=== PATIENT | male | born 1970 | race Caucasian/White ===

== ENCOUNTER 2022-06-18 11:20 | Emergency (ER) | payer BC ==
[~2022-06-18] VITALS: Ht 175.3 cm; Wt 86.2 kg
--- NOTE | 2022-06-18 11:35 | NUR ---
[id number] FROM HOME C/O L SIDED FLANK PAIN ONSET 2 HOURS AGO. PAIN IS 10/10 ON PAIN SCALE. ATTACHED TO MONITOR, VITALS ARE WITHIN NORMAL LIMITS. AWAITING MD RENEE.
[2022-06-18] MEDS ORDERED: KETOROLAC TROMETHAMINE 15 MG/ML VIAL ONE ×2 (11:43→14:30)
[2022-06-18] MEDS ORDERED: ONDANSETRON HCL/PF 4 MG/2 ML VIAL ONE (11:43)
[2022-06-18] MEDS ORDERED: MORPHINE SULFATE INJ 4 MG/ML DISP.SYRIN ONE (11:44)
[2022-06-18] MEDS ORDERED: MORPHINE SULFATE INJ 2 MG/ML DISP.SYRIN IV ONE (12:00)
[2022-06-18] MEDS ORDERED: KETOROLAC TROMETHAMINE INJ 30 MG/ML VIAL IV ONE ×2 (12:00→14:30)
[2022-06-18] MEDS ORDERED: ONDANSETRON HCL/PF 4 MG/2 ML VIAL IVP ONE (12:00)
[2022-06-18] MEDS ORDERED: IV NS 0.9% 1,000 ML BAG IV ONE (12:00)
--- NOTE | 2022-06-18 12:00 | NUR ---
THE PATIENT IS TAKEN TO CT VIA [facility]
--- NOTE | 2022-06-18 12:10 | NUR ---
THE PATIENT IS BACK FROM CT VIA [facility]
[2022-06-18 12:19] LABS: BASOPHILS # (AUTO) 0.1 K/uL (0.0-0.2); BASOPHILS % (AUTO) 0.4 % (0.0-2.0); EOSINOPHILS % (AUTO) 1.7 % (0.0-6.0); HEMATOCRIT 43 % (39-51); HEMOGLOBIN 14.9 g/dL (13.5-17.5); LYMPHOCYTES # (AUTO) 22.6 K/uL (0.8-4.8); LYMPHOCYTES % (AUTO) 74.6 % (20.0-44.0); MEAN CORPUSCULAR HGB CONC 35 g/dl (31.0-36.0); MEAN CORPUSCULAR VOLUME 86 fL (80-96); MONOCYTES # (AUTO) 0.7 K/uL (0.1-1.30); MONOCYTES % (AUTO) 2.4 % (2.0-12.0); NEUTROPHILS # (AUTO) 6.3 K/uL (1.8-8.9); NEUTROPHILS % (AUTO) 20.9 % (43.0-81.0); PLATELET COUNT (AUTO) 214 K/uL (150-450); RED BLOOD CELL COUNT(AUTO) 5.05 MIL/uL (4.5-6.0)
[2022-06-18 12:44] LABS: ALBUMIN 4.3 g/dL (3.4-5.0); BILIRUBIN,DIRECT 0.3 mg/dL (0.0-0.2); BILIRUBIN,TOTAL 1.2 mg/dL (0.2-1.0); CALCIUM, SERUM 8.8 mg/dL (8.5-10.1); CREATININE 1.1 mg/dL (0.6-1.3); POTASSIUM 3.5 mmol/L (3.5-5.1); WHITE BLOOD COUNT (AUTO) 30.3 K/uL (4.3-11.0)
[2022-06-18] MEDS ORDERED: HYDROMORPHONE 1 MG/1 ML DISP.SYRIN IV ONE ×2 (13:00→14:30)
[2022-06-18] MEDS ORDERED: HYDROMORPHONE 1 MG/1 ML DISP.SYRIN ONE ×2 (13:02→14:30)
--- NOTE | 2022-06-18 13:07 | NUR ---
URINE COLLECTED AND SENT
--- NOTE | 2022-06-18 13:10 | NUR ---
COVID TEST COLLECTED AND SENT
[2022-06-18 13:21] LABS: BAND % (MANUAL) 3 % (0.0-5.0); LYMPHOCYTES % (MANUAL) 69 % (16-48)
[2022-06-18 13:22] LABS: EOSINOPHILS % (MANUAL) 3 % (0-4); MONOCYTES % (MANUAL) 3 % (0-11.0); NEUTROPHILS % (MANUAL) 22 (42-76)
[2022-06-18 13:59] LABS: BILIRUBIN,URINE SMALL (NEGATIVE); COLOR,URINE YELLOW (YELLOW); LEUKOCYTE ESTERASE ,URINE NEGATIVE (NEGATIVE); NITRITE, URINE NEGATIVE (NEGATIVE); PROTEIN,URINE TRACE mg/dl (NEGATIVE); UGLUCOSE NEGATIVE (NEGATIVE); UROBILINOGEN,URINE 0.2 EU/dL (0.2)
[2022-06-18 14:45] LABS: BACTERIA,URINE None seen /HPF (None Seen); SQUAMOUS EPITHELIAL CELL,UR None Seen /HPF (None Seen); URINE AMORPHOUS URATE Many /HPF (None Seen); WBC,URINE NONE SEEN /HPF (0-3)
[2022-06-18] MEDS ORDERED: OXYC-128 PO (15:46)
[2022-06-18] MEDS ORDERED: IBUP-1955 PO (15:46)
[2022-06-18] MEDS ORDERED: TAMS-12 PO (15:47)
--- NOTE | 2022-06-18 16:22 | NUR ---
IV removed. Catheter intact and site benign. Pressure and 4x4 applied to site. No bleeding noted.Patient discharged to home in stable condition. Written and verbal after care instructions given. Patient verbalizes understanding of instruction. The patient is picked up by [facility].
[2022-06-18 16:23] VITALS: BP 133/72
== END 2022-06-18 16:23 | disposition home or self-care (01) ==
LOC: ER 11:22
DX: N20.1 Calculus of ureter (principal); C91.10 Chronic lymphocytic leukemia of B-cell type not having achieved remission; R11.10 Vomiting, unspecified; Z20.822 Contact with and (suspected) exposure to COVID-19
CPT/HCPCS: 99285; 74176; 96374; 96375; 96361; 87426; 96376; 85025; 80048; 87086; 83690; 80076; 81001; 36415; 85007; J2270; J2405; J7030; J1170 ×2; J1885 ×2; C9803